=== PATIENT | male | born 1935 | race Caucasian/White ===

== ENCOUNTER → 2017-04-23 | Day surgery (SDC) | payer MEDICARE ==
[~2017-04-23] VITALS: Ht 182.9 cm; Wt 101.0 kg
[~2017-04-23] MED LIST: ACETAMINOPHEN/HYDROcodone 325 MG/7.5 MG TAB PO PRN; ALPR.25 PO; AMBI10TA PO; ASPI81CH37 CHEW; BALANCED SALT SOLN OPHT IRRIG 15 ML BTL LEFT EYE ONE; BETAMETHASONE SOD PHOS/ACETATE SUSP 30 MG/5 ML VIAL ONE; BUPIVACAINE/EPINEPHRINE 0.25% PF 10 ML VIAL INFIL ONE; CHLORHEXIDINE GLUCONATE 2 % 1 PACK (2 CLOTHS) TOPICAL PRN; DO NOT ADM ANY ANTICOAGULANT DRUGS PRN; GELATIN 12 MM/7 MM FOAM ONE; GENTAMICIN SULFATE 80 MG/2 ML VIAL IRRIGATION ONE; HYDR-3288 PO; INSULIN HUMAN REGULAR 1,000 UNITS/10 ML VIAL SQ PRN; LACTATED RINGER'S 1000 ML IV PRN; LACTCAP8 PO; MAGN400T2 PO; METOPROLOL TARTRATE 25 MG TAB PO PRN; MORPHINE SULFATE 4 MG/ML INJ IV PUSH PRN; MULT-65 PO; ONDANSETRON HCL 4 MG/2 ML VIAL IV PUSH ONE; PHENYLEPH/NS 1000 MCG/10 ML SYR IV ONE; POVIDONE IODINE 5% (ANTISEPSIS KIT) 4 APPLICATIONS EACH NARE PRN; POVIDONE IODINE 7.5% SCRUB 118 ML BOTTLE TOPICAL SCH; PROPOFOL 200 MG/20 ML AMP IV ONE; SODIUM CHLOR 0.9% 1000 ML INJ 1,000 ML IV SCH; SODIUM CHLORID 0.9% 500 ML IV PRN; STOO100C PO; TETRACAINE 0.5% OPTH SOLN 4 ML BTL LEFT EYE ONE; VITA10002 PO; ceFAZolin 2 GM PREMIX 50 ML IV SCH; ePHEDrine/NS 25 MG/5 ML SYR IV ONE; fentaNYL CITRATE 250 MCG/5 ML AMP ONE
--- NOTE | 2017-04-23 00:11 | MH ---
cc: SUSIE OGDEN DATE OF ADMISSION: 04/23/2017 ADMITTING DIAGNOSIS: Lumbar spinal stenosis. HISTORY This patient is an 82-year-old male with significant low back and leg pain. Investigative study shows evidence of a high grade stenosis, L2-L3. The patient now presents for surgical treatment. PAST MEDICAL HISTORY, SOCIAL HISTORY AND FAMILY HISTORY See attached notes. PHYSICAL EXAMINATION GENERAL: An 82-year-old male in moderate distress with his back and legs. HEENT: Normocephalic, atraumatic. Pupils equal, round, reactive to light and accommodation, extraocular movements intact. NECK: Supple. CHEST: Clear HEART: Regular rate and rhythm. ABDOMEN: Soft, nontender. Normoactive bowel sounds. MUSCULOSKELETAL: Thoracolumbar spine, restricted motion, pain with range of motion. Lower extremities: Straight leg raising positive. Motor examination shows mild weakness bilateral quadriceps. IMPRESSION: Lumbar spinal stenosis, L2-L3. PLAN: Bilateral lumbar laminectomy, L2-L3, from the right, lateral recess decompression, use of dilation port and microscope. CONSENT There are risks with surgery including infection, bleeding, loss of motion, continued pain need for further surgery, neurologic and vascular injury. The patient understands these issues and wishes to press on with surgery as outlined above. Susie Ogden MD [facility] [place] /11:40 PM /12:03 AM
[2017-04-23 10:23] VITALS: BP 154/84; PULSE 60; RESP 18; TEMP 97.5; O2SAT 99
--- NOTE | 2017-04-23 13:42 | PD.OP ---
cc: Bon Castro MD Operative Report Date of Surgery: Apr 23, 2017 Preoperative Diagnosis: Lumbar spinal stenosis, L2-3. Bilateral lumbosacral radiculopathy, right greater than left Postoperative Diagnosis: Same Procedure: Bilateral lumbar laminectomy L2-L3 from the right, bilateral lateral recess decompression. Use of dilation port and microscope Anesthesia: Gen. Surgeon: Bon Castro Spear Fisher(s): HOWIE Abel Operation and Findings: EBL: 100 cc INDICATION: This patient is an 82-year-old male who developing weakness into his legs and severe pain into the legs related to a high-grade central and lateral recess stenosis at L2-3. Despite conservative care, the patient is symptomatic and now presents for surgical treatment. NOTE: Kimberly Abel PA-C was present for the entire surgical procedure as my commercial real estate assistant. In my medical opinion her skill and care was necessary for the proper management of this patient. PROCEDURE: The patient was brought to the operating room and anesthetized in the supine position. The patient was rolled to a prone position on a Leonardo frame on a Justice table. All pressure points were protected in the back was scrubbed with alcohol followed by Hibiclens followed by ChloraPrep and draped sterilely. A timeout was done and antibiotics were given. AP and lateral radiographic images were used to identify the proper levels and perform skin markings. We started from the right side at the L2-3 level. A paramedian incision was made and an off-midline fascial incision was made. A dilating system was placed down to the interlaminar space and held provisionally to the side of the table. The microscope was brought into the field. A high-speed bur under the microscope was used to perform a bilateral laminectomy from that side. A lateral recess decompression on both sides was accomplished using straight and angled Kerrison punches. A partial medial facetectomy was accomplished. The crossing and exiting nerve roots were completely decompressed. The wound was irrigated copiously. A small piece of Gelfoam with Celestone was placed into the epidural space. Hemostasis was controlled. The deep fascia was approximated with interrupted 0 Vicryl suture subcutaneous suture with 2-0 Vicryl suture and skin with running intradermal 3-0 Vicryl followed by Dermabond. A field block with local anesthesia was utilized. A sterile dressing was applied. The sponge count and needle counts and instrument counts were all correct. The patient tolerated the procedure well as taken to the recovery room in satisfactory condition. FINDINGS: There was a significant bilateral lateral recess stenosis at this level. Severe right-sided L3 nerve root compromise was seen with moderate to severe on the left side. There was some loosening of the facet joint. There was suspicion of some instability at this level. There was no evidence of a disc herniation Bon Castro MD Apr 23, 2017 13:42
--- NOTE | 2017-04-23 14:15 | RADRPT ---
EXAM DATE/TIME: 04/23/2017 12:42 [facility] COMPARISON: No previous studies available for comparison. INDICATIONS : L2-3 Laminectomy. MEDICAL HISTORY : Carcinoma, prostatic. SURGICAL HISTORY : None. ENCOUNTER: Initial ACUITY: 1 day PAIN SCORE: Non-responsive. LOCATION: Lumbar spine. FINDINGS: A single lateral view of the lumbar spine was performed. A localization device has been placed ropewalk rope maker iorly at the level of L2-3. CONCLUSION: Localization at L2-3. Vern Rivera MD on April 23, 2017 at 14:13 Board Certified Radiologist. This report was verified electronically.
[2017-04-23 15:22] VITALS: BP 142/86; PULSE 86; RESP 18; TEMP 96.8; O2SAT 96
== END | disposition home or self-care (01) ==
LOC: HSDC 09:32
PROVIDERS: ATTEND Orthopaedic Surgery Orthopaedic Surgery of the Spine
DX: M48.06 Spinal stenosis, lumbar region (principal); M54.17 Radiculopathy, lumbosacral region; G47.30 Sleep apnea, unspecified; Z87.891 Personal history of nicotine dependence; Z85.46 Personal history of malignant neoplasm of prostate; Z79.82 Long term (current) use of aspirin; Z79.899 Other long term (current) drug therapy
CPT/HCPCS: 00630; 63047; 72020; 76000; J0690; J1580; J2370; J2405; J3010; J0702